=== PATIENT | male | born 1990 | race Caucasian/White ===

== ENCOUNTER 2020-01-16 08:37 | Outpatient (CLI) | payer SELFPAY ==
[2020-01-18 00:37] LABS: COVID-19 RT-PCR Result NEGATIVE (Negative)
== END 2020-01-16 08:57 ==
PROVIDERS: PCP Family Medicine
DX: J02.8 Acute pharyngitis due to other specified organisms (principal); Z11.59 Encounter for screening for other viral diseases
CPT/HCPCS: U0003

== ENCOUNTER 2020-03-29 09:27 | Outpatient (CLI) | payer SELFPAY ==
[2020-04-01 18:14] LABS: SARS-CoV-2 RNA Undetected (Undetected); SARS-CoV-2 Specimen Source Nasopharynx
== END 2020-03-29 09:47 ==
PROVIDERS: PCP Family Medicine; Visit Provider Emergency Medicine
DX: Z11.59 Encounter for screening for other viral diseases (principal)
CPT/HCPCS: U0003

== ENCOUNTER 2020-04-19 07:44 | Outpatient (CLI) | payer SELFPAY ==
[2020-04-22 20:49] LABS: SARS-CoV-2 RNA Undetected (Undetected); SARS-CoV-2 Specimen Source Nasopharynx
== END 2020-04-19 08:04 ==
PROVIDERS: PCP Emergency Medicine; Visit Provider Emergency Medicine
DX: Z11.59 Encounter for screening for other viral diseases (principal)
CPT/HCPCS: U0003